=== PATIENT | male | born 1935 | race Hispanic/Latino ===

== ENCOUNTER → 2018-04-22 | Outpatient (CLI) | payer OTHER ==
[~2018-04-22] MED LIST: ALPR0.5T8 PO; CHOL500050 PO; COLC0.6T67 PO; IBUP-2077 PO; INDO50 PO; LATA2.5D2 OU; METO50TA18 PO; RIVA20TA PO; ROSU20TA PO; SERT50TA12 PO
== END | disposition home or self-care (01) ==
LOC: RAH 10:19
PROVIDERS: ATTEND Family Medicine
DX: K30 Functional dyspepsia (principal)
CPT/HCPCS: 78264; A9541

== ENCOUNTER → 2019-02-25 | Outpatient (CLI) | payer OTHER ==
[~2019-02-25] MED LIST changes: -INDO50 PO; +INDO50CA97 PO; -ROSU20TA PO; +ROSU20TA23 PO
== END | disposition home or self-care (01) ==
LOC: SHCH 13:17
PROVIDERS: ATTEND Internal Medicine Cardiovascular Disease
DX: I11.9 Hypertensive heart disease without heart failure (principal); I35.8 Other nonrheumatic aortic valve disorders
CPT/HCPCS: 93306

== ENCOUNTER → 2020-06-06 | Outpatient (CLI) | payer OTHER ==
[~2020-06-06] MED LIST changes: +LATA2.5D14 OU; -LATA2.5D2 OU; +SERT-439 PO; -SERT50TA12 PO
== END | disposition home or self-care (01) ==
LOC: SHCH 13:47
PROVIDERS: ATTEND Internal Medicine Cardiovascular Disease
DX: I06.8 Other rheumatic aortic valve diseases (principal)
CPT/HCPCS: 93306

== ENCOUNTER → 2020-06-08 | Outpatient (CLI) | payer OTHER ==
[~2020-06-08] VITALS: Ht 177.8 cm; Wt 115.2 kg
[~2020-06-08] MED LIST changes: +REGADENOSON 0.4 MG/5 ML PF SYG IVP SCH
== END | disposition home or self-care (01) ==
LOC: SHCH 08:17
PROVIDERS: ATTEND Internal Medicine Cardiovascular Disease
DX: I20.9 Angina pectoris, unspecified (principal); R07.9 Chest pain, unspecified; R06.09 Other forms of dyspnea
CPT/HCPCS: 78452; 93017; 96374; A9500 ×2; J2785

== ENCOUNTER 2020-06-19 13:37 | Inpatient (IN) | payer OTHER ==
[~2020-06-19] VITALS: Ht 177.8 cm; Wt 117.1 kg
[~2020-06-19 13:37] MED LIST changes: -REGADENOSON 0.4 MG/5 ML PF SYG IVP SCH
[2020-06-19 14:17] LABS: BASOPHILS % (AUTO) 0.4 % (0.0-5.0); EOSINOPHILS % (AUTO) 1.6 % (0.0-8.0); HEMATOCRIT 42.6 % (42-54); LYMPHOCYTES % (AUTO) 23.7 % (21.0-51.0); MEAN CORPUSCULAR HEMOGLOBIN 27.7 pg (27.0-33.0); MEAN CORPUSCULAR HGB CONC 32.6 g/dL (32.0-36.0); MEAN CORPUSCULAR VOLUME 84.9 fL (79-99); MONOCYTES % (AUTO) 6.6 % (3.0-13.0); NEUTROPHILS % (AUTO) 67.2 % (40.0-77.0); PLATELET COUNT (AUTO) 152 K/uL (130-400); RED BLOOD CELL COUNT(AUTO) 5.02 MIL/uL (4.50-6.20); RED CELL DISTRIBUTION WIDTH 17.6 % (11.0-15.5); WHITE BLOOD COUNT (AUTO) 7.7 K/uL (4.8-10.8)
[2020-06-19 14:21] LABS: ABG BASE EXCESS 1.2 mmol/L (-2.0-3.0); ABG HCO3 26.1 mmol/L (21.0-28.0); ABG OXYGEN SATURATION 89.5 % (95.0-99.0); ABG PCO2 42 mmHg (35-48)
[2020-06-19 14:28] LABS: INR 1.29 (0.85-1.15); PROTHROMBIN TIME 13.7 SEC (9.6-11.6)
[2020-06-19 14:29] LABS: PARTIAL THROMBOPLASTIN TIME 36.9 SEC (26.3-35.5)
[2020-06-19 14:44] LABS: ALBUMIN 3.1 g/dL (3.5-5.0); POTASSIUM 4.2 mmol/L (3.5-5.1)
[2020-06-19] MEDS ORDERED: POTASSIUM CHLORIDE 20MEQ/100ML 100 ML IV PRN ×3 (14:45)
[2020-06-19] MEDS ORDERED: ONDANSETRON 4MG INJ IVP PRN (14:45)
[2020-06-19] MEDS ORDERED: NITROGLYCERIN 0.4 MG SL TAB SL PRN (14:45)
[2020-06-19] MEDS ORDERED: MAGNESIUM 2GM PREMIX 50ML 50 ML IV PRN (14:45)
[2020-06-19] MEDS ORDERED: ACETAMINOPHEN 325 MG TAB PO PRN ×2 (14:45)
[2020-06-19] MEDS ORDERED: CLONIDINE HCL 0.1 MG TABLET PO PRN (14:45)
[2020-06-19] MEDS ORDERED: LIDOCAINE HCL-MPF 1% 2ML VIAL IV PRN ×2 (14:45)
[2020-06-19] MEDS ORDERED: KCL 20 MEQ ERTAB PO PRN ×2 (14:45)
[2020-06-19] MEDS ORDERED: GLUCAGON 1MG KIT 1 MG ML IM PRN ×2 (14:45)
[2020-06-19] MEDS ORDERED: LACTULOSE 20 GM/30 ML UDCUP PO PRN (14:45)
[2020-06-19] MEDS: PANTOPRAZOLE 40 MG TAB DR PO SCH (14:45)
[2020-06-19] MEDS ORDERED: POTASSIUM CHLORIDE 10% ELIXIR 20 MEQ/15 ML UDCUP PO PRN ×2 (14:45)
[2020-06-19] MEDS ORDERED: 0.9%NACL 10ML VIAL IVP SCH (14:45)
[2020-06-19] MEDS ORDERED: DEXTROSE 50%-WATER 50 ML DISP.SYRIN IV PRN ×2 (14:45)
[2020-06-19] MEDS ORDERED: LIDOCAINE HCL-MPF 1% 2ML VIAL IJ PRN (14:45)
[2020-06-19 15:01] LABS: B-TYPE NATRIURETIC PEPTIDE 124 pg/mL (0-100)
[2020-06-19 15:06] LABS: BILIRUBIN,TOTAL 0.5 mg/dL (0.2-1.0); THYROID STIMULATING HORMONE 1.54 uIU/mL (0.36-3.74); TOTAL PROTEIN, SERUM 6.7 g/dL (6.0-8.3)
[2020-06-19] MEDS ORDERED: PANTOPRAZOLE 40 MG TAB DR ONE (15:19)
[2020-06-19] MEDS: SOLU-MEDROL 40MG VIAL IVP SCH ×2 (16:15→21:00)
[2020-06-19 16:40] LABS: APPEARANCE,URINE Clear (CLEAR); BILIRUBIN,URINE Negative (NEGATIVE); COLOR,URINE Yellow (YELLOW); GLUCOSE, URINE (UA) Negative (NEGATIVE); KETONES,URINE Negative (NEGATIVE); LEUKOCYTE ESTERASE ,URINE Negative (NEGATIVE); NITRATE,URINE Negative (NEGATIVE); OCCULT BLOOD,URINE Negative (NEGATIVE); PROTEIN,URINE Trace mg/dL (NEGATIVE)
[2020-06-19 17:17] LABS: BACTERIA,URINE None Seen /HPF (None Seen); MUCUS,URINE Few LPF (None Seen); RBC,URINE 0-1 /HPF (0-1); SQUAMOUS EPITHELIAL CELL,UR Few /HPF (0-2); WBC,URINE 0-1 /HPF (0-1)
[2020-06-19] MEDS ORDERED: SOLU-MEDROL 40MG VIAL ONE (17:21)
[2020-06-19] MEDS: ALPRAZOLAM 0.25 MG TABLET PO SCH (21:00)
[2020-06-19] MEDS: ATORVASTATIN 40 MG TABLET PO SCH (21:00)
[2020-06-19] MEDS: GABAPENTIN 300 MG CAPSULE PO SCH (21:00)
[2020-06-19] MEDS: PREGABALIN 25 MG CAP PO SCH (21:00)
[2020-06-20] MEDS ORDERED: ISOSORBIDE MONO 30MG SR TAB PO ONE (00:06)
[2020-06-20] MEDS ORDERED: ENOXAPARIN SODIUM 120 MG/0.8ML SQ ONE (00:07)
[2020-06-20] MEDS ORDERED: GABAPENTIN 300 MG CAPSULE ONE (00:07)
[2020-06-20] MEDS ORDERED: PREGABALIN 25 MG CAP ONE (00:08)
[2020-06-20] MEDS ORDERED: ALPRAZOLAM 0.25 MG TABLET ONE (00:08)
[2020-06-20 04:12] LABS: ABG BASE EXCESS 1.2 mmol/L (-2.0-3.0); ABG HCO3 28.5 mmol/L (21.0-28.0); ABG PCO2 56 mmHg (35-48)
[2020-06-20] MEDS ORDERED: SOLU-MEDROL 40MG VIAL ONE (04:13)
[2020-06-20 04:30] LABS: HEMATOCRIT 45.5 % (42-54); MEAN CORPUSCULAR HEMOGLOBIN 26.9 pg (27.0-33.0); MEAN CORPUSCULAR HGB CONC 31.9 g/dL (32.0-36.0); MEAN CORPUSCULAR VOLUME 84.3 fL (79-99); RED BLOOD CELL COUNT(AUTO) 5.4 MIL/uL (4.50-6.20); WHITE BLOOD COUNT (AUTO) 8.3 K/uL (4.8-10.8)
[2020-06-20 04:59] LABS: POTASSIUM 4.6 mmol/L (3.5-5.1)
[2020-06-20 05:21] LABS: ALBUMIN 3.2 g/dL (3.5-5.0); BILIRUBIN,TOTAL 0.6 mg/dL (0.2-1.0); CREATININE 0.9 mg/dL (0.5-1.5); CRP QUANTITATIVE 7.3 mg/L (0.00-9.0); PHOSPHORUS 3.7 mg/dL (2.5-4.9)
[2020-06-20 05:30] VITALS: BP 137/80
[2020-06-20] MEDS: INSULIN R PO SSI SQ SCH ×4 (06:35→20:15)
[2020-06-20 07:38] VITALS: BP 157/88
[2020-06-20] MEDS: SOLU-MEDROL 40MG VIAL IVP SCH (08:25)
[2020-06-20] MEDS: PREGABALIN 25 MG CAP PO SCH ×3 (08:26→20:05)
[2020-06-20] MEDS: ALPRAZOLAM 0.25 MG TABLET PO SCH ×3 (08:26→20:05)
[2020-06-20] MEDS: PANTOPRAZOLE 40 MG TAB DR PO SCH (08:26)
[2020-06-20] MEDS: ISOSORBIDE MONO 30MG SR TAB PO SCH (08:26)
[2020-06-20] MEDS: GABAPENTIN 300 MG CAPSULE PO SCH ×3 (08:27→20:06)
[2020-06-20] MEDS ORDERED: ENOXAPARIN SODIUM 1 MG/KG SQ SCH (09:00)
[2020-06-20] MEDS: LISINOPRIL 10 MG TABLET PO SCH (09:24)
[2020-06-20] MEDS: ENOXAPARIN SODIUM 120 MG/0.8ML SQ SCH ×2 (09:25→20:07)
[2020-06-20 11:40] VITALS: BP 150/76
[2020-06-20 15:25] VITALS: BP 141/83
[2020-06-20 19:59] VITALS: BP 108/65
[2020-06-20] MEDS: ATORVASTATIN 40 MG TABLET PO SCH (20:06)
[2020-06-21] VITALS (17 sets, daily range): BP systolic 114–147; BP diastolic 59–92
[2020-06-21 04:49] LABS: HEMATOCRIT 45.6 % (42-54); MEAN CORPUSCULAR HEMOGLOBIN 27.8 pg (27.0-33.0); MEAN CORPUSCULAR HGB CONC 32.9 g/dL (32.0-36.0); MEAN CORPUSCULAR VOLUME 84.4 fL (79-99); RED BLOOD CELL COUNT(AUTO) 5.4 MIL/uL (4.50-6.20); RED CELL DISTRIBUTION WIDTH 17.2 % (11.0-15.5); WHITE BLOOD COUNT (AUTO) 15.6 K/uL (4.8-10.8)
[2020-06-21 04:55] LABS: INR 1.1 (0.85-1.15); PROTHROMBIN TIME 11.9 SEC (9.6-11.6)
[2020-06-21 04:56] LABS: PARTIAL THROMBOPLASTIN TIME 36.2 SEC (26.3-35.5)
[2020-06-21 04:58] LABS: CREATININE 1.1 mg/dL (0.5-1.5); POTASSIUM 4.5 mmol/L (3.5-5.1)
[2020-06-21] MEDS: INSULIN R PO SSI SQ SCH ×4 (06:19→20:28)
[2020-06-21] MEDS ORDERED: BIVALIRUDIN 250 MG/VIAL IV ONE ×2 (08:22→13:13)
[2020-06-21] MEDS ORDERED: IOPAMIDOL-370 100 ML VIAL IV ONE ×2 (08:22→13:43)
[2020-06-21] MEDS ORDERED: LIDOCAINE HCL 400MG/20ML VIAL ONE (08:22)
[2020-06-21] MEDS: ENOXAPARIN SODIUM 120 MG/0.8ML SQ SCH (09:00)
[2020-06-21] MEDS: PREGABALIN 25 MG CAP PO SCH ×3 (09:09→20:27)
[2020-06-21] MEDS: ALPRAZOLAM 0.25 MG TABLET PO SCH ×3 (09:09→20:26)
[2020-06-21] MEDS: GABAPENTIN 300 MG CAPSULE PO SCH ×3 (09:10→20:27)
[2020-06-21] MEDS: PANTOPRAZOLE 40 MG TAB DR PO SCH (09:10)
[2020-06-21] MEDS: LISINOPRIL 10 MG TABLET PO SCH (09:10)
[2020-06-21] MEDS: ISOSORBIDE MONO 30MG SR TAB PO SCH (09:10)
[2020-06-21] MEDS ORDERED: NITROGLYCERIN 2 MG VIAL IV ONE (12:47)
[2020-06-21] MEDS ORDERED: MIDAZOLAM HCL 1 MG/ML 2ML VIAL ONE (12:47)
[2020-06-21] MEDS ORDERED: FENTANYL CITRATE PF 50 MCG/1 ML 2ML VIAL ONE (12:48)
[2020-06-21] MEDS ORDERED: METOPROLOL TARTRATE 1 MG/ML 5ML VIAL IV PRN (14:45)
[2020-06-21] MEDS ORDERED: 0.9%NACL 1000ML 1,000 ML IV SCH (14:45)
[2020-06-21] MEDS: RIVAROXABAN 20 MG TABLET PO SCH (20:26)
[2020-06-21] MEDS: ATORVASTATIN 40 MG TABLET PO SCH (20:26)
[2020-06-22 03:00] VITALS: BP 149/75
[2020-06-22 04:40] LABS: HEMATOCRIT 46.3 % (42-54); MEAN CORPUSCULAR HEMOGLOBIN 27.2 pg (27.0-33.0); MEAN CORPUSCULAR HGB CONC 31.5 g/dL (32.0-36.0); MEAN CORPUSCULAR VOLUME 86.4 fL (79-99); RED BLOOD CELL COUNT(AUTO) 5.36 MIL/uL (4.50-6.20); RED CELL DISTRIBUTION WIDTH 17.7 % (11.0-15.5); WHITE BLOOD COUNT (AUTO) 8.6 K/uL (4.8-10.8)
[2020-06-22 05:07] LABS: ALBUMIN 3.2 g/dL (3.5-5.0); BILIRUBIN,TOTAL 0.4 mg/dL (0.2-1.0); CREATININE 1.2 mg/dL (0.5-1.5); MAGNESIUM 2.6 mg/dL (1.80-2.40); POTASSIUM 4.4 mmol/L (3.5-5.1); TOTAL PROTEIN, SERUM 6.8 g/dL (6.0-8.3)
[2020-06-22] MEDS: INSULIN R PO SSI SQ SCH (05:33)
[2020-06-22 07:50] VITALS: BP 127/78
[2020-06-22] MEDS: ISOSORBIDE MONO 30MG SR TAB PO SCH (09:17)
[2020-06-22] MEDS: PREGABALIN 25 MG CAP PO SCH (09:17)
[2020-06-22] MEDS: GABAPENTIN 300 MG CAPSULE PO SCH (09:17)
[2020-06-22] MEDS: PANTOPRAZOLE 40 MG TAB DR PO SCH (09:18)
[2020-06-22] MEDS: ALPRAZOLAM 0.25 MG TABLET PO SCH (09:18)
[2020-06-22] MEDS: LISINOPRIL 10 MG TABLET PO SCH (09:18)
[2020-06-22] MEDS: RIVAROXABAN 20 MG TABLET PO SCH (09:18)
[2020-06-22] MEDS ORDERED: LISI10TA24 PO (11:07)
[2020-06-22] MEDS ORDERED: ISOS30TA92 PO (11:07)
[2020-06-22 11:46] VITALS: BP 109/71
== END 2020-06-22 13:01 | disposition home or self-care (01) | DRG 287 ==
LOC: EDH 13:37 → EDHIP 13:38 → 4DH 06-20 05:38
PROVIDERS: ADMIT Internal Medicine; ATTEND Internal Medicine
PROC: B2111ZZ Fluoroscopy of Multiple Coronary Arteries using Low Osmolar Contrast (ICD-10-PCS; principal; 2020-06-19)
PROC: B2181ZZ Fluoroscopy of Left Internal Mammary Bypass Graft using Low Osmolar Contrast (ICD-10-PCS; 2020-06-19)
PROC: B2121ZZ Fluoroscopy of Single Coronary Artery Bypass Graft using Low Osmolar Contrast (ICD-10-PCS; 2020-06-19)
PROC: B2151ZZ Fluoroscopy of Left Heart using Low Osmolar Contrast (ICD-10-PCS; 2020-06-19)
PROC: 4A023N7 Measurement of Cardiac Sampling and Pressure, Left Heart, Percutaneous Approach (ICD-10-PCS; 2020-06-19)
PROC: B41F1ZZ Fluoroscopy of Right Lower Extremity Arteries using Low Osmolar Contrast (ICD-10-PCS; 2020-06-19)
DX: R00.1 Bradycardia, unspecified (principal); I48.92 Unspecified atrial flutter; R09.02 Hypoxemia; E66.9 Obesity, unspecified; E78.00 Pure hypercholesterolemia, unspecified; I48.91 Unspecified atrial fibrillation; Z79.01 Long term (current) use of anticoagulants; E66.01 Morbid (severe) obesity due to excess calories; D72.829 Elevated white blood cell count, unspecified; E78.5 Hyperlipidemia, unspecified; G89.29 Other chronic pain; I11.0 Hypertensive heart disease with heart failure; I25.10 Atherosclerotic heart disease of native coronary artery without angina pectoris; I45.10 Unspecified right bundle-branch block; I73.9 Peripheral vascular disease, unspecified; M47.9 Spondylosis, unspecified; M54.10 Radiculopathy, site unspecified; Z20.822 Contact with and (suspected) exposure to COVID-19; Z96.653 Presence of artificial knee joint, bilateral; I35.0 Nonrheumatic aortic (valve) stenosis; Z79.899 Other long term (current) drug therapy; Z87.891 Personal history of nicotine dependence; Z95.1 Presence of aortocoronary bypass graft; Z68.37 Body mass index [BMI] 37.0-37.9, adult
CPT/HCPCS: 36415; 36600; 71046; 71250; 80048; 80053; 81001; 82803; 82948; 83735; 83880; 84100; 84145; 84443; 84484; 85025; 85027; 85378; 85610; 85730; 86140; 87040; 87426; 93005; 93461; 94760; 99156; 99157; C1769; C1894; G0378; J0583; J1644; J1650; J1815; J2250; J2920; J3010; J3490; Q9967; U0003

== ENCOUNTER → 2023-11-16 | Outpatient (CLI) | payer OTHER ==
[~2023-11-16] MED LIST changes: -ALPR0.5T8 PO; -COLC0.6T67 PO; +ESCI20TA PO; -IBUP-2077 PO; +ISOS30TA92 PO; +LISI10TA24 PO; -METO50TA18 PO; -SERT-439 PO
== END | disposition home or self-care (01) ==
LOC: SHCH 13:10
PROVIDERS: ATTEND Internal Medicine Cardiovascular Disease
DX: I08.8 Other rheumatic multiple valve diseases (principal); R94.31 Abnormal electrocardiogram [ECG] [EKG]; I48.0 Paroxysmal atrial fibrillation
CPT/HCPCS: 93306